=== PATIENT | female | born 1950 | race Caucasian/White ===

== ENCOUNTER → 2016-04-14 | Day surgery (SDC) | payer MEDICARE ==
[2016-04-08 09:53] VITALS: BMI 28.6
[~2016-04-14] MED LIST: BSS 500 ml-Vancomycin 10 mg-Phenylephrine 1 mg Irrigation IR ONE; CHONDROITIN SULFATE 0.5 ML/PFS INTRAOC ONE; DEXAMETHASONE 4 MG/ML VIAL IV PRN; DIAZEPAM 5 MG TAB PO PRN; FENTANYL 100 MCG/2 ML VIAL IV PRN; FENTANYL 100 MCG/2 ML VIAL ONE; HYDROCODONE 5 MG/ACETAMIN 325 MG TAB PO PRN; Hyaluronate Sodium (Provisc) 5.5 mg/0.55 ml syringe INTRAOC ONE; KETOROLAC TROMETH 30 MG/ML VIAL IV PRN; LABETALOL 20 MG/4 ML SYRINGE IV PRN; LR 1,000 ML IV ONE; LR 1,000 ML IV SCH; MIDAZOLAM 2 MG/2 ML VIAL ONE; NS 1,000 ML IV SCH; NS 250 ML IV SCH; ONDANSETRON HCL 4 MG/2 ML VIAL IV PRN; PHENYLEPHRINE 2.5% OPHTH SOLN 2 ML BOT OP EYE ONE; SCOPOLAMINE TRANSDERMAL PATCH TOP PRN; TETRACAINE 0.5% 2 ML OPHTH SOLN OP EYE ONE; TETRACAINE 0.5% 2 ML OPHTH SOLN OP EYE PRN; TROPICAMIDE 1% OPHTH SOLN 2 ML BOTTLE OP EYE ONE; Vancomycin 10 MG, Phenylephrine 1,000 MCG in Balanced Salt Solution 500 ML IO ONE; hydrALAZINE 20 MG/ML VIAL IV PRN
[2016-04-14 10:09] VITALS: TEMP 97.8
--- NOTE | 2016-04-14 10:58 | HIMOPRPT ---
DATE OF PROCEDURE: 04/14/16 PREOPERATIVE DIAGNOSIS: Cataract right eye. POSTOPERATIVE DIAGNOSIS: Cataract right eye. PROCEDURE: Cataract extraction by phacoemulsification of the right eye SURGEON: Maite Mathews MD. ANESTHESIA: IV Sedation/Topical. COMPLICATIONS: None. PRE-OPERATIVE EVALUATION: The patient has been examined and deemed medically stable for cataract extraction with no apparent need for inpatient observation; outpatient setting is appropriate. Patient appears to be oriented to time, place and person. PROCEDURE IN DETAIL: The correct eye confirmed by patient, doctor, staff and paperwork. The operative eye was then marked by the doctor in the preoperative area. Eye drops were instilled into the operative eye to dilate the pupil. The patient was transported to the operating room and was placed in the supine position. A time out was performed before the beginning of the procedure. The operative eye was prepped and draped in the usual sterile fashion for ophthalmic surgery, taking care to isolate the lashes from the surgical field. Topical anesthetic drops were instilled into the operative eye. A lid speculum was placed. Betadine 5% was instilled in the operative eye for antiseptic. Microscope was brought into place for use throughout the case. The eye was inspected. A paracentesis incision was created with a side port knife. The temporal limbal corneal incision was performed with a lauren blade. Viscoelastic was injected into the anterior chamber. Capsule forceps were used to create a capsulorhexis. Hydrodissection was performed with BSS. The nucleus was removed by phacoemulsification. Phaco time is noted below. The remaining cortical material was removed by I&A. The capsular bag was noted to be intact and distended with viscoelastic. The Intraocular lens was placed into the intact bag and centered without difficulty. The remaining viscoelastic was removed by I&A. Betadine 5% drops were placed to inspect wound and for antisepsis. Inspection revealed watertight wounds. The lid speculum was removed. Postoperative medications were instilled into the eye and a shield secured over the operative eye. IOL Type [id number] IOL Power 24.0 CDE 4.05 Discharge Summary: There were no complications and the patient was taken to the postoperative area in good condition. Postoperative instructions and outpatient follow up time were given.
--- NOTE | 2016-04-14 11:02 | SC.ANESPOS ---
Post-Anesthesia Note LOC: Fully Awake Post-Anesthesia Assessment: Awake, Returned to Baseline, Hemodynamically Stable , Pain Control Adequate Phase I & II Recovery Complete: Yes Apparent Anesthesia Complication: No : N - Vital Signs Blood Pressure: 143/83 Pulse: 69 Resp Rate: 16 O2 Sat: 95 Temp: 97.8 F
[2016-04-14 11:11] VITALS: BP 127/77; PULSE 64
--- NOTE | 2016-04-14 13:17 | SC.ANESEVA ---
Anesthesia Eval & Plan ([facility]) - Providers Stated Procedure: right eye cataract surgery Surgeon:: Maite Mathews - Medications/Allergies Allergies: Allergies Penicillins Allergy (Verified 04/14/16 09:48) See Comments Hives, Swelling Home Medications: Home Medication List Biotin 1 mg PO DAILY 04/08/16 [History] Diclofenac Sodium 75 mg PO DAILY 04/08/16 [History] Estradiol 1 mg PO DAILY 04/08/16 [History] Current Medication List: Reviewed - Focused Physical Exam NPO since: after Midnight Mallampati: Class II Neck: Full Range of Motion Cardiovascular/Chest: Normal Respiratory: Lungs clear Any problems with anesthesia, including nausea and vomiting?: No Any relatives with a history of Malignant Hyperthermia?: No Prone to Motion Sickness: No Beta Fouzia given (if appropriate): N/A Other: Diagnoses COMBINED FORMS OF AGE-RELATED CATARACT, RIGHT EYE (04/14/16) Allergies Allergy/AdvReac Type Severity Reaction Status Date / Time Penicillins Allergy See Verified 04/14/16 09:48 Comments Home Medications Medication Instructions Recorded Last Taken Type Alprazolam [Alprazolam ER] 0.5 mg PO DAILY 02/02/14 01/31/14 History Aspirin 81 mg PO DAILY 02/02/14 01/31/14 History Ca Carbonate/Vitamin D3/Vit K 1 each PO DAILY 02/02/14 01/31/14 History [Calcium + D Soft Chewable Tab] Cinnamon Bark [Cinnamon] 1,000 mg PO DAILY(LUIS) 02/02/14 01/31/14 History Diclofenac Sodium 75 mg PO DAILY 02/02/14 01/31/14 History Estradiol [Estrace] 1 mg PO DAILY 02/02/14 01/31/14 History Flaxseed [Flaxseed Oil] 1,000 mg PO DAILY 02/02/14 01/31/14 History Levothyroxine [Synthroid, Levoxyl] 75 mcg PO DAILY 02/02/14 04/14/16 History Multivitamin [One Daily 1 each PO DAILY 02/02/14 01/31/14 History Multivitamin] Biotin 1 mg PO DAILY 04/08/16 Unknown History Diclofenac Sodium 75 mg PO DAILY 04/08/16 Unknown History Estradiol 1 mg PO DAILY 04/08/16 Unknown History Height and Weight Patient's height 5 ft 6 in Patient's weight 80.45 kg Weight (Calculated Kilograms) 80.450 BMI 28.6 Vital Signs Temperature 97.8 F 04/14/16 11:02 Pulse Rate 64 04/14/16 11:05 Respiratory Rate 16 04/14/16 11:05 Blood Pressure 127/77 04/14/16 11:05 Pulse Oxygen Saturation 95 04/14/16 11:05 - Anesthetic Plan Anesthesia Type: MAC ASA Class: 3 - Focused Review of Systems Cardiac History: Yes: Hx Abnormal Cholesterol/Hyperlipidemia No: Hx Cardiac Disorders HEENT: Yes: Cataracts, Cataract Removal, Other HEENT Problems Gastrointestinal: Yes: Hx Colonoscopy No: Hx Gastrointestinal Disorders Neurological/Musculoskeletal: Yes: Hx Migraine, Hx Neurological Disorders Endocrine: Yes: Hx Hypothyroidism Blood/Autoimmune: No: Hx Blood Transfusions Smoking Status: Never smoker Surgical History: Yes: T&A, Appendectomy, Cholecystectomy
== END ==
LOC: CPSC 08:22
PROVIDERS: ATTEND Ophthalmology
PROC: 08RJ3JZ Replacement of Right Lens with Synthetic Substitute, Percutaneous Approach (ICD-10-PCS; principal; 2016-04-14 11:00)
DX: H25.811 Combined forms of age-related cataract, right eye (principal); E03.9 Hypothyroidism, unspecified; E78.5 Hyperlipidemia, unspecified; G43.909 Migraine, unspecified, not intractable, without status migrainosus; M19.90 Unspecified osteoarthritis, unspecified site; F41.9 Anxiety disorder, unspecified; Z79.899 Other long term (current) drug therapy
CPT/HCPCS: 66984; A9270; J2250; J3010; V2632; J3490